=== PATIENT | female | born 1980 | race Hispanic/Latino ===

== ENCOUNTER 2017-03-18 19:54 | Emergency (ER) | payer OTHER ==
[2017-03-18 19:55] VITALS: BMI 32.2
[2017-03-18 20:02] VITALS: BP 124/65; PULSE 82; RESP 18; O2SAT 96
--- NOTE | 2017-03-18 22:28 | ED PDOC ---
HPI: Abdomen Time Seen by Provider: 03/18/17 21:53 Chief Complaint (Nursing): Abdominal Pain Chief Complaint (Provider): lower abdominal pain History Per: Patient History/Exam Limitations: no limitations Onset/Duration Of Symptoms: Days (2) Current Symptoms Are (Timing): Still Present Location Of Pain/Discomfort: Suprapubic Quality Of Discomfort: "Pain" Associated Symptoms: Urinary Symptoms Additional History Per: Patient Additional Complaint(s): 36 y/o female presents for eval of suprapubic abdominal pain x 2 days. Patient was started on Macrobid yesterday for possible UTI as blood was noted in her urine when it was checked at her job, but notes no improvement of symptoms. Today patient noted vaginal spotting. Denies fever, nausea/vomiting, changes in bowel movements, dysuria, vaginal discharge. LMP 03/04/17 Patient also complaining of sore throat x 2 days. Denies fever, difficulty speaking/swallowing, nasal congestion, cough. Past Medical History Reviewed: Historical Data, Nursing Documentation, Vital Signs Vital Signs: Last Vital Signs Temp 99.3 F 03/18/17 22:47 Pulse 82 03/18/17 19:57 Resp 18 03/18/17 19:57 BP 124/65 03/18/17 19:57 Pulse Ox 96 03/18/17 23:29 - Medical History PMH: Graves' Disease (when child) - Surgical History Surgical History: (x2) - Family History Family History: States: Unknown Family Hx - Home Medications Home Medications: Ambulatory Orders Medication Instructions Recorded Naproxen 1 tab PO Q8 PRN #15 tab 12/07/14 Ibuprofen [Motrin] 600 mg PO TID PRN #30 tab 07/21/16 Albuterol 0.083% [Albuterol 0.083% 2.5 mg IH Q8 PRN #100 neb 09/27/16 Inhal Bailey (2.5 mg/3 ml) UD] Albuterol HFA [Ventolin HFA 90 2 puff IH [id number] PRN #1 inhaler 09/27/16 mcg/actuation (8 g)] Mask, Face [Nebulizer Aerosol Mask 1 dev XX PRN PRN #1 dev 09/27/16 Adult] Nebulizer [Aeroeclipse II] 1 each MC Q8 PRN #1 each 09/27/16 Prednisone [Deltasone] 3 tab PO DAILY #12 tablet 09/27/16 Promethazine/Codeine 5 ml PO Q12 PRN #100 ml 09/27/16 [Codeine/Promethazine 10 MG/5 Ml-6.25 MG/5 Ml] Naproxen [Naprosyn] 500 mg PO Q12 PRN #20 tablet 03/19/17 Penicillin VK [Pen-Vee K] 500 mg PO BID #20 tab 03/19/17 - Allergies Allergies/Adverse Reactions: Allergies Allergy/AdvReac Type Severity Reaction Status Date / Time No Known Allergies Allergy Verified 12/07/14 12:20 Review of Systems ROS Statement: Except As Marked, All Systems Reviewed And Found Negative ENT: Positive for: Throat Pain Genitourinary Female: Positive for: Pelvic Pain (suprapubic) Physical Exam - Reviewed Nursing Documentation Reviewed: Yes Vital Signs Reviewed: Yes - Physical Exam Appears: Positive for: Well, Non-toxic, No Acute Distress Head Exam: Positive for: ATRAUMATIC, NORMAL INSPECTION, NORMOCEPHALIC Skin: Positive for: Normal Color ENT: Positive for: Pharyngeal Erythema Cardiovascular/Chest: Positive for: Regular Rate, Rhythm Respiratory: Positive for: Normal Breath Sounds Gastrointestinal/Abdominal: Positive for: Bowel Sounds, Soft, Tenderness ( suprapubic; neg mcburney, neg psoa, neg obturator). Negative for: Distended, Rebound Back: Positive for: Normal Inspection Extremity: Positive for: Normal ROM Neurologic/Psych: Positive for: Alert, Oriented - Laboratory Results Result Diagrams: 03/18/17 22:53 03/18/17 22:53 - ECG O2 Sat by Pulse Oximetry: 96 - Progress ED Course And Treament: labs, urine, rapid strep, ibuprofen PO EXAM: US Pelvis, Transvaginal CLINICAL HISTORY: 36 years old, female; Pain; Pelvic pain TECHNIQUE: Real-time transvaginal pelvic ultrasound (complete) with image documentation. Transvaginal imaging was used for better evaluation of the endometrium and adnexa. COMPARISON: No relevant prior studies available. FINDINGS: Uterus/cervix: Uterus measures 7.7 x 3.8 x 5.6 cm in size. 3.6 x 4.2 x 3.6 cm posterior uterine mass. Endometrium: 0.5 cm in thickness. Right ovary: 2.6 x 1.9 x 1.8 cm in size. 1.5 x 1.2 x 1.4 cm septated anechoic lesion. Small follicles. Normal flow. Left ovary: 1.4 x 1.3 x 1.7 cm in size. No mass. Small follicles. Normal flow. Free fluid: No significant free fluid. Bladder: Empty bladder which cannot be evaluated with this probe. IMPRESSION: 1. Probable fibroid. 2. Probable RIGHT ovarian cyst. Suggest followup to ensure resolution. 3. Incidental/non-acute findings are described above. Patient educated on findings, discharged with rx Penicillin VK, naproxen. Advised follow up PMD, [employer]ing System Operator. Return to ED for worsening/concerning symptoms. Disposition - Clinical Impression Clinical Impression: Uterine fibroid, Strep throat - Patient ED Disposition Is Patient to be Admitted: No Counseled Patient/Family Regarding: Studies Performed, Diagnosis, Need For Followup, Rx Given - Disposition Disposition: Routine/Home Disposition Time: 00:12 Condition: IMPROVED Prescriptions: Naproxen [Naprosyn] 500 mg PO Q12 PRN #20 tablet PRN Reason: Pain, Moderate (4-7) Penicillin VK [Pen-Vee K] 500 mg PO BID #20 tab Instructions: Strep Throat (ED), Uterine Fibroids (ED)
[2017-03-18 22:39] LABS: RBC URINE 4 /hpf (0-3); URINE BILIRUBIN NEGATIVE (NEGATIVE); URINE BLOOD LARGE (NEGATIVE); URINE COLOR YELLOW (YELLOW); URINE GLUCOSE (UA) NEG (Normal); URINE KETONE 20 mg/dL (NEGATIVE); URINE LEUKOCYTE ESTERASE NEG Leu/uL (Negative); URINE PROTEIN NEGATIVE (NEGATIVE); URINE UROBILINOGEN 0.2-1.0 mg/dL (0.2-1.0); WBC URINE 3 /hpf (0-5)
[2017-03-18 22:47] VITALS: TEMP 99.3
[2017-03-18 23:00] LABS: BASO # 0.1 K/uL (0.0-0.2); BASO % 0.5 % (0.0-2.0); EOS # 0.2 K/uL (0.0-0.7); EOS % 1.3 % (0.0-4.0); HEMATOCRIT 35.5 % (34.0-47.0); LYMPH # 1.7 K/uL (1.0-4.3); LYMPH % 14.8 % (20.0-40.0); MEAN CELL VOLUME 83.4 fl (81.0-99.0); MEAN CORPUSCULAR HEMOGLOBIN 26.4 pg (27.0-31.0); MEAN CORPUSCULAR HGB CONC 31.7 g/dL (33.0-37.0); MEAN PLATELET VOLUME 8.9 fl (7.2-11.7); MONO # 0.7 K/uL (0.0-0.8); MONO % 5.9 % (0.0-10.0); NEUT # 8.9 K/uL (1.8-7.0); NEUT % 77.5 % (50.0-75.0); RED CELL DISTRIBUTION WIDTH 16.2 % (11.5-14.5); WHITE BLOOD COUNT 11.4 K/uL (4.8-10.8)
[2017-03-18 23:05] LABS: ALB/GLOB RATIO 1.2 (1.0-2.1); ALKALINE PHOSPHATASE 63 U/L (38-126); ALT/SGPT 39 U/L (9-52); AST/SGOT 30 U/L (14-36); BILIRUBIN,TOTAL 0.3 mg/dl (0.2-1.3); BLOOD UREA NITROGEN 16 mg/dl (7-17); CALCIUM 9.2 mg/dL (8.4-10.2); CARBON DIOXIDE 25 mmol/L (22-30); CHLORIDE 101 mmol/L (98-107); GFR AFRICAN-AMERICAN > 60; GLUCOSE,RANDOM 110 mg/dL (65-105); POTASSIUM 4.2 MMOL/L (3.6-5.0); SODIUM 138 mmol/l (132-148); TOTAL PROTEIN 7.9 G/DL (6.3-8.2)
--- NOTE | 2017-03-18 23:40 | US ---
EXAM: US Pelvis, Transvaginal CLINICAL HISTORY: 36 years old, female; Pain; Pelvic pain TECHNIQUE: Real-time transvaginal pelvic ultrasound (complete) with image documentation. Transvaginal imaging was used for better evaluation of the endometrium and adnexa. COMPARISON: No relevant prior studies available. FINDINGS: Uterus/cervix: Uterus measures 7.7 x 3.8 x 5.6 cm in size. 3.6 x 4.2 x 3.6 cm posterior uterine mass. Endometrium: 0.5 cm in thickness. Right ovary: 2.6 x 1.9 x 1.8 cm in size. 1.5 x 1.2 x 1.4 cm septated anechoic lesion. Small follicles. Normal flow. Left ovary: 1.4 x 1.3 x 1.7 cm in size. No mass. Small follicles. Normal flow. Free fluid: No significant free fluid. Bladder: Empty bladder which cannot be evaluated with this probe. IMPRESSION: 1. Probable fibroid. 2. Probable RIGHT ovarian cyst. Suggest followup to ensure resolution. 3. Incidental/non-acute findings are described above.
== END 2017-03-19 00:20 | disposition home or self-care (01) ==
LOC: H.ER 19:54
DX: D25.9 Leiomyoma of uterus, unspecified (principal); J02.0 Streptococcal pharyngitis; E05.00 Thyrotoxicosis with diffuse goiter without thyrotoxic crisis or storm

== ENCOUNTER 2017-11-06 17:28 | Emergency (ER) | payer OTHER ==
[2017-11-06 17:28] VITALS: BMI 32.2
[2017-11-06 17:47] VITALS: O2SAT 98
[2017-11-06] MEDS ORDERED: Sodium Chloride 0.9% 1,000 ML IV STA ×2 (18:05→20:22)
--- NOTE | 2017-11-06 18:40 | ED PDOC ---
HPI: CCC, URI, Sore Throat Time Seen by Provider: 11/06/17 17:48 Chief Complaint (Nursing): Flu-like Symptoms Chief Complaint (Provider): Flu-like Symptoms History Per: Patient History/Exam Limitations: no limitations Onset/Duration Of Symptoms: Days (2-3) Current Symptoms Are (Timing): Still Present Additional Complaint(s): 37 year old female with medical history of Graves' disease, who presents to the emergency department with a complaint of flu-like symptoms including generalized bodyache, cough, congestion, fever and sore throat ongoing for 2-3 days. Denied any chest pain, shortness of breath, bloody cough, nausea, vomiting or diarrhea. Patient was recently seen at an Urgent Care with negative flu and strep results and has been taking Motrin 400mg with no relief. PMD: Carlos Griffin MD Past Medical History Reviewed: Historical Data, Nursing Documentation, Vital Signs Vital Signs: Last Vital Signs Temp 99.6 F 11/06/17 20:15 Pulse 108 H 11/06/17 21:40 Resp 20 11/06/17 21:40 BP 121/53 L 11/06/17 21:40 Pulse Ox 98 11/06/17 21:40 - Medical History PMH: Graves' Disease (when child) Denies: No Chronic Diseases - Surgical History Surgical History: (x2) Denies: No Surg Hx - Family History Family History: States: Unknown Family Hx - Social History Current smoker - smoking cessation education provided: No Alcohol: None Drugs: Denies - Home Medications Home Medications: Ambulatory Orders Medication Instructions Recorded Naproxen 1 tab PO Q8 PRN #15 tab 12/07/14 Ibuprofen [Motrin] 600 mg PO TID PRN #30 tab 07/21/16 Albuterol 0.083% [Albuterol 0.083% 2.5 mg IH Q8 PRN #100 neb 09/27/16 Inhal Bailey (2.5 mg/3 ml) UD] Albuterol HFA [Ventolin HFA 90 2 puff IH [id number] PRN #1 inhaler 09/27/16 mcg/actuation (8 g)] Mask, Face [Nebulizer Aerosol Mask 1 dev XX PRN PRN #1 dev 09/27/16 Adult] Nebulizer [Aeroeclipse II] 1 each MC Q8 PRN #1 each 09/27/16 Prednisone [Deltasone] 3 tab PO DAILY #12 tablet 09/27/16 Promethazine/Codeine 5 ml PO Q12 PRN #100 ml 09/27/16 [Codeine/Promethazine 10 MG/5 Ml-6.25 MG/5 Ml] Naproxen [Naprosyn] 500 mg PO Q12 PRN #20 tablet 03/19/17 Penicillin VK [Pen-Vee K] 500 mg PO BID #20 tab 03/19/17 Benzonatate [Tessalon Perle] 100 mg PO Q8 PRN #30 capsule 11/06/17 - Allergies Allergies/Adverse Reactions: Allergies Allergy/AdvReac Type Severity Reaction Status Date / Time No Known Allergies Allergy Verified 11/06/17 17:42 Review of Systems ROS Statement: Except As Marked, All Systems Reviewed And Found Negative Constitutional: Positive for: Fever, Other (generalized bodyaches) ENT: Positive for: Nose Congestion, Throat Pain Cardiovascular: Negative for: Chest Pain Respiratory: Positive for: Cough. Negative for: Shortness of Breath, Hemoptysis Gastrointestinal: Negative for: Nausea, Vomiting, Diarrhea Physical Exam - Reviewed Nursing Documentation Reviewed: Yes Vital Signs Reviewed: Yes - Physical Exam Appears: Positive for: Non-toxic, No Acute Distress Skin: Positive for: Normal Color. Negative for: Rash Eye Exam: Positive for: Normal appearance, EOMI, PERRL. Negative for: Periorbital swelling, Periorbital tenderness ENT: Positive for: Normal ENT Inspection, Pharynx Is (within normal limits). Negative for: Pharyngeal Erythema, Tonsillar Exudate Cardiovascular/Chest: Positive for: Regular Rate, Rhythm, Chest Non Tender Respiratory: Positive for: Normal Breath Sounds. Negative for: Decreased Breath Sounds, Respiratory Distress Gastrointestinal/Abdominal: Positive for: Normal Exam, Soft. Negative for: Tenderness Neurologic/Psych: Positive for: Alert, Oriented - Laboratory Results Result Diagrams: 11/06/17 18:35 11/06/17 18:35 - ECG O2 Sat by Pulse Oximetry: 98 (RA) Pulse Ox Interpretation: Normal - Progress ED Course And Treament: On re-evaluation, pt. reports feeling much better. Pt. had meal in ED. Medical Decision Making Medical Decision Making: Initial Impression: Flu-like symptoms Initial Plan: * VBG * CMP * Urine * CBC * Chest X-Ray * NS 1,000ml IV per 1,000mls/hr * Tylenol 975mg PO * Blood culture * Influenza A B * Rapid strep Time: 1835 --Influenza: negative --Rapid strep: negative Scribe Attestation: Documented by Minoo Brown, acting as a scribe for Kale Silva PA-C. Provider Scribe Attestation: All medical record entries made by the Scribe were at my direction and personally dictated by me. I have reviewed the chart and agree that the record accurately reflects my personal performance of the history, physical exam, medical decision making, and the department course for this patient. I have also personally directed, reviewed, and agree with the discharge instructions and disposition. Disposition - Clinical Impression Clinical Impression: Influenza-like symptoms - Patient ED Disposition Is Patient to be Admitted: No - Disposition Disposition: Routine/Home Disposition Time: 21:38 Condition: IMPROVED Prescriptions: Benzonatate [Tessalon Perle] 100 mg PO Q8 PRN #30 capsule PRN Reason: Cough Instructions: Influenza (ED) Forms: [email or web address] ([place]ian), [facility] ED School/Work Excuse
[2017-11-06 18:59] LABS: VENOUS BLOOD GAS BASE EXCESS 0.8 mmol/L (0.0-2.0); VENOUS BLOOD GAS PCO2 46 mmHg (40-60); VENOUS BLOOD GAS PO2 16 mm/Hg (30-55); VENOUS BLOOD PH 7.37 (7.32-7.43)
[2017-11-06 19:24] LABS: ALB/GLOB RATIO 1.1 (1.0-2.1); ALBUMIN 4.5 g/dL (3.5-5.0); GFR AFRICAN-AMERICAN > 60; GFR NON-AFRICAN AMERICAN > 60
[2017-11-06 19:27] LABS: ALT/SGPT 26 U/L (9-52); AST/SGOT 39 U/L (14-36); BLOOD UREA NITROGEN 14 mg/dl (7-17)
[2017-11-06 19:35] LABS: BASO % 0.2 % (0.0-2.0); EOS # 0.1 K/uL (0.0-0.7); EOS % 1.1 % (0.0-4.0); HEMOGLOBIN 11.2 g/dL (12.0-16.0); LYMPH # 0.7 K/uL (1.0-4.3); LYMPH % 9.8 % (20.0-40.0); MEAN CELL VOLUME 82.3 fl (81.0-99.0); MEAN CORPUSCULAR HEMOGLOBIN 27.4 pg (27.0-31.0); MEAN CORPUSCULAR HGB CONC 33.3 g/dL (33.0-37.0); MEAN PLATELET VOLUME 9.3 fl (7.2-11.7); MONO # 0.4 K/uL (0.0-0.8); MONO % 4.8 % (0.0-10.0); NEUT # 6.3 K/uL (1.8-7.0); NEUT % 84.1 % (50.0-75.0); NRBC % 0.2 % (0.0-0.0); PLATELET COUNT 236 K/uL (130-400); RBC 4.08 Mil/uL (3.80-5.20); RED CELL DISTRIBUTION WIDTH 15.2 % (11.5-14.5); WHITE BLOOD COUNT 7.5 K/uL (4.8-10.8)
[2017-11-06 20:46] VITALS: TEMP 99.6
[2017-11-06 21:09] LABS: BASOPHIL 1 % (0-2); EOSINOPHIL 1 % (0-7); LYMPHOCYTE 15 % (20-50); MONOCYTE 3 % (0-10); NEUTROPHIL 80 % (42-75); TOTAL CELLS COUNTED 100
[2017-11-06 21:10] LABS: ANISOCYTOSIS SLIGHT; HYPOCHROMIC SLIGHT; POIKILOCYTOSIS SLIGHT
[2017-11-06 21:11] LABS: ACANTHOCYTES SLIGHT; OVALOCYTES SLIGHT; SCHISTOCYTES SLIGHT
[2017-11-06 21:12] LABS: GIANT PLATELETS PRESENT; PLATELET ESTIMATE NORMAL (NORMAL); STOMATOCYTES SLIGHT; TEARDROP CELLS SLIGHT
[2017-11-06 21:41] VITALS: BP 121/53; PULSE 108; RESP 20
--- NOTE | 2017-11-07 11:27 | RAD ---
HISTORY: cough COMPARISON: Comparison chest dated 09/27/2016 TECHNIQUE: Chest PA and lateral FINDINGS: LUNGS: The interstitial markings are slightly increased and coarsened ; rule out sequela of reactive/inflammatory airway disease or viral illness. PLEURA: No significant pleural effusion identified. No pneumothorax apparent. CARDIOVASCULAR: Normal. OSSEOUS STRUCTURES: No significant abnormalities. VISUALIZED UPPER ABDOMEN: Normal. OTHER FINDINGS: None. IMPRESSION: The interstitial markings are slightly increased and coarsened ; rule out sequela of reactive/inflammatory airway disease or viral illness.
== END 2017-11-06 21:46 | disposition home or self-care (01) ==
LOC: H.ER 17:28
DX: J11.1 Influenza due to unidentified influenza virus with other respiratory manifestations (principal); E05.00 Thyrotoxicosis with diffuse goiter without thyrotoxic crisis or storm
CPT/HCPCS: 71046; 80053; 81025; 82803; 85025; 87040; 87070; 87430; 87804; 96360; 96361; 99284; J7040